=== PATIENT | male | born 1965 | race Caucasian/White ===

== ENCOUNTER 2023-07-17 14:08 | Emergency (ER) | payer MEDICARE, SELFPAY ==
[2023-07-17 14:14] VITALS: BP 168/90; PULSE 60; RESP 18; TEMP 36.7; O2SAT 97; BMI 45.9
--- NOTE | 2023-07-17 14:30 | CT_ITS ---
The [address] [address] Patient Name: TENA SHORT MRN: [id number] date: 1965 Sex: M Assigned Patient Location: ER Current Patient Location: ER Accession/Order Number: [id number] Exam Date: 07/17/2023 15:00 Report Date: 07/17/2023 15:30 At the request of: DANTE MONAHAN Procedure: CT abdomen pelvis w con EXAM: CT abdomen pelvis w con HISTORY: Umbilical hernia COMPARISON: None. TECHNIQUE: Axial CT imaging was performed through the abdomen and pelvis with intravenous contrast. Multiplanar reformats were performed. Dose reduction techniques were achieved by using automated exposure control and/or adjustment of mA and/or kV according to patient size and/or use of iterative reconstruction technique. FINDINGS: Lung bases: Lung bases are clear. No pleural effusion. GI upper: Unremarkable. Liver: Normal size and contour. Gallbladder: No significant abnormality. No cholelithiasis. Biliary system: No intra or extrahepatic biliary ductal dilatation. Spleen: Normal size. Pancreas: Unremarkable. Adrenal glands: Normal adrenal glands. Kidneys/ureters: Normal contours. No hydronephrosis. No nephrolithiasis or ureterolithiasis. Vessels: No aneurysm. Lymph Nodes: No lymphadenopathy. Small bowel: No wall thickening or dilatation. Colon: No wall thickening or dilatation. Appendix: Appendectomy. Peritoneal cavity: No free fluid or pneumoperitoneum. Lower : Unremarkable. Bones: No acute bony abnormality. Soft tissues: Small fat-containing hernia. Additional findings: None. CT/CT abdomen pelvis w con IMPRESSION: No acute abnormality. Small fat-containing umbilical hernia. Electronically authenticated by: NAS SCOTT Date: 07/17/2023 15:30
--- NOTE | 2023-07-17 14:31 | ED.ABDPAIN1 ---
HPI - Abdominal Pain General Chief Complaint: Abdominal Pain Stated Complaint: ABDOMINAL PAIN Time Seen by Provider: 07/17/23 14:09 Source: patient and family Mode of arrival: walk-in Limitations: no limitations History of Present Illness HPI narrative: Patient is a 57-year-old male who presents to the emergency department from his PCP office for suspected hernia to the umbilicus that has been present for 1 week. Patient was seen at the [facility] emergency department 2 days ago for unrelated diffuse swelling thought to be secondary to his nicardipine. While he was there, he complained of pain in the abdomen and distention. He had a CT of the abdomen and pelvis without contrast that was unremarkable and he was discharged home. On follow-up today with his PCP, he continued to complain of pain and swelling with a hard lump above the bellybutton. He has had no fevers, chills, vomiting. He states he chronically strains to have a bowel movement. He is passing small amounts of stool. He states when he strains to have a bowel movement, he shakes like I'm having a seizure . He has not been taking any medications for pain. No stool softeners. No urinary symptoms. He states he had laparoscopic surgery through the bellybutton years ago for an appendectomy. Related Data Previous Rx's Medication Instructions Recorded docusate sodium 100 mg capsule 100 mg PO BID PRN constipation #14 07/17/23 (Colace) caps ondansetron 4 mg disintegrating 4 mg PO Q6H PRN nausea and 07/17/23 tablet vomiting #12 tabs tramadol 50 mg tablet 50 mg PO Q4H PRN pain 3 days #15 07/17/23 tabs Allergies Allergy/AdvReac Type Severity Reaction Status Date / Time nifedipine AdvReac Severe edema Verified 07/17/23 14:22 Review of Systems ROS Constitutional Denies: fever or chills Ears, nose, mouth, and throat Denies: throat pain Cardiovascular Denies: chest pain Respiratory Denies: shortness of breath or cough Gastrointestinal Reports: abdominal pain and nausea; Denies: vomiting or diarrhea Genitourinary Denies: painful urination Musculoskeletal Denies: back pain Integumentary/Breast Denies: rash Neurological Denies: headache PFSH PFSH Social History Smoking status: Never smoker Exam Narrative Exam Narrative: Gen.: Awake, alert, in no distress Head: Normocephalic, atraumatic ENT: Moist mucous membranes Respiratory: No respiratory distress, lungs clear bilaterally Cardio: Regular rate and rhythm Gastrointestinal: Abdomen is soft, mildly distended, small umbilical hernia noted with no redness, induration or open wounds or drainage Extremities: Moves extremities equally Psych: Normal mood and affect Neuro: No focal neuro deficit Skin: Warm, dry, intact Constitutional Vital Signs, click to edit/add: Last Vital Signs Temp 98.0 F 07/17/23 14:14 Pulse 60 07/17/23 14:14 Resp 18 07/17/23 14:14 BP 168/90 H 07/17/23 14:14 Pulse Ox 97 07/17/23 14:14 O2 Del Method Room Air 07/17/23 14:14 Course Vital Signs Vital signs: Vital Signs Temperature 98.0 F 07/17/23 14:14 Pulse Rate 60 07/17/23 14:14 Respiratory Rate 18 07/17/23 14:14 Blood Pressure 168/90 H 07/17/23 14:14 Pulse Oximetry 97 07/17/23 14:14 Oxygen Delivery Method Room Air 07/17/23 14:14 Temperature 98.0 F 07/17/23 14:14 Pulse Rate 60 07/17/23 14:14 Respiratory Rate 18 07/17/23 14:14 Blood Pressure 168/90 H 07/17/23 14:14 Pulse Oximetry 97 07/17/23 14:14 Oxygen Delivery Method Room Air 07/17/23 14:14 MDM - Abdominal Pain MDM Narrative Medical decision making narrative: Lab studies are unremarkable, patient with stable, minimal renal insufficiency. No leukocytosis noted. CT of the abdomen and pelvis with IV contrast shows a small fat-containing umbilical hernia. No surrounding erythema or cellulitis of the abdominal wall. Abdomen is soft and benign, nonsurgical in the ER. No other acute abnormalities noted on CT. Patient is discharged home with a short course of analgesics and stool softeners with nausea medication. He is referred to general surgery. Return to the ER if symptoms change or worsen. Medical Records Attestation: I reviewed the patient's medical records. Lab Data Attestation: I reviewed the patient's lab results. Labs: Lab Results 07/17/23 Range/Units 14:30 WBC 8.7 (4.0-11.0) 10^3/uL RBC 4.05 L (4.70-6.10) 10^6/uL Hgb 11.7 L (14.0-18.0) g/dL Hct 36.1 L (42.0-54.0) % MCV 89.1 (80.0-94.0) fL MCH 28.9 (25.9-34.0) pg MCHC 32.4 (29.9-35.2) g/dL RDW 12.8 (11.0-15.0) % Plt Count 271 (150-450) 10^3/uL MPV 10.8 (9.5-13.5) fL Neut % (Auto) 64.2 (43.0-75.0) % Lymph % (Auto) 21.1 (20.5-60.0) % [place] % (Auto) 8.8 (1.7-12.0) % Eos % (Auto) 3.4 (0.9-7.0) % Baso % (Auto) 1.0 (0.2-2.0) % Neut # (Auto) 5.6 (1.4-6.5) 10^3/uL Lymph # (Auto) 1.8 (1.2-3.8) 10^3/uL [place] # (Auto) 0.8 (0.3-0.8) 10^3/uL Eos # (Auto) 0.3 (0.0-0.7) 10^3/uL Baso # (Auto) 0.1 (0.0-0.1) 10^3/uL Abs Immat Gran (auto) 0.13 H (0.00-0.03) 10^3/uL Imm/Tot Granulo (auto) 1.5 H (0.0-0.5) % Sodium 137 (136-145) mmol/L Potassium 3.9 (3.5-5.1) mmol/L Chloride 103 (98-107) mmol/L Carbon Dioxide 26.0 (21.0-32.0) mmol/L Anion Gap 11.9 BUN 22.0 H (7.0-18.0) mg/dL Creatinine 1.58 H (0.70-1.30) mg/dL Est GFR ( Amer) 55 L (>=60) Est GFR (Non-Af Amer) 45 L (>=60) BUN/Creatinine Ratio 13.9 Glucose 99 (74-106) mg/dL Calcium 9.1 (8.5-10.1) mg/dL Total Bilirubin 0.4 (0.2-1.0) mg/dL AST 22 (15-37) U/L ALT 48 (16-63) U/L Alkaline Phosphatase 108 (46-116) U/L Total Protein 7.6 (6.4-8.2) g/dL Albumin 3.6 (3.4-5.0) g/dL Globulin 4.0 g/dL Albumin/Globulin Ratio 0.[address] scan - abdomen: Attestation: I have reviewed the pertinent imaging results. Radiologist's impression: Procedure: CT abdomen pelvis w con EXAM: CT abdomen pelvis w con HISTORY: Umbilical hernia COMPARISON: None. TECHNIQUE: Axial CT imaging was performed through the abdomen and pelvis with intravenous contrast. Multiplanar reformats were performed. Dose reduction techniques were achieved by using automated exposure control and/or adjustment of mA and/or kV according to patient size and/or use of iterative reconstruction technique. FINDINGS: Lung bases: Lung bases are clear. No pleural effusion. GI upper: Unremarkable. Liver: Normal size and contour. Gallbladder: No significant abnormality. No cholelithiasis. Biliary system: No intra or extrahepatic biliary ductal dilatation. Spleen: Normal size. Pancreas: Unremarkable. Adrenal glands: Normal adrenal glands. Kidneys/ureters: Normal contours. No hydronephrosis. No nephrolithiasis or ureterolithiasis. Vessels: No aneurysm. Lymph Nodes: No lymphadenopathy. Small bowel: No wall thickening or dilatation. Colon: No wall thickening or dilatation. Appendix: Appendectomy. Peritoneal cavity: No free fluid or pneumoperitoneum. Lower : Unremarkable. Bones: No acute bony abnormality. Soft tissues: Small fat-containing hernia. Additional findings: None. IMPRESSION: No acute abnormality. Small fat-containing umbilical hernia. Electronically authenticated by: NAS SCOTT Date: 07/17/2023 15:30 Discharge Plan Discharge Chief Complaint: Abdominal Pain Clinical Impression: Umbilical hernia, Abdominal pain Patient Disposition: Home, Self-Care Time of Disposition Decision: 15:42 Condition: Good Prescriptions / Home Meds: New docusate sodium [Colace] 100 mg capsule 100 mg PO BID PRN (Reason: constipation) Qty: 14 0RF tramadol 50 mg tablet 50 mg PO Q4H PRN (Reason: pain) 3 Days Qty: 15 0RF Rx Instructions: DX: R10.9 ondansetron 4 mg tablet,disintegrating 4 mg PO Q6H PRN (Reason: nausea and vomiting) Qty: 12 0RF Instructions: Umbilical Hernia (ED), Acute Abdominal Pain (ED) Stand Alone Forms: Portal Instructions Referrals: ELIE HERRERA APRN [Primary Care Provider] - 1 week Yemi Mcmanus MD [Physician] - 1 week
[2023-07-17] MEDS: 0.9 % SODIUM CHLORIDE 1,000 ML 999 ML IV (14:36)
[2023-07-17] MEDS: MORPHINE SULFATE 4 MG/ML VIAL IV (14:50)
[2023-07-17] MEDS: KETOROLAC TROMETHAMINE 30 MG/ML VIAL 15 MG IVP (14:51)
[2023-07-17] MEDS: ONDANSETRON PF 4 MG/2 ML VIAL IV (14:52)
[2023-07-17 15:05] LABS: Basophils Absolute Auto 0.1 10^3/uL (0.0-0.1); Eosinophils Absolute Auto 0.3 10^3/uL (0.0-0.7); Eosinophils Percent Auto 3.4 % (0.9-7.0); Hematocrit 36.1 % (42.0-54.0); Hemoglobin 11.7 g/dL (14.0-18.0); Immature Granulocytes Abs Auto 0.13 10^3/uL (0.00-0.03); Immature Granulocytes Pct Auto 1.5 % (0.0-0.5); Lymphocytes Absolute Auto 1.8 10^3/uL (1.2-3.8); Lymphocytes Percent Auto 21.1 % (20.5-60.0); Mean Corpuscular HGB Conc 32.4 g/dL (29.9-35.2); Mean Corpuscular Hemoglobin 28.9 pg (25.9-34.0); Mean Corpuscular Volume 89.1 fL (80.0-94.0); Mean Platelet Volume 10.8 fL (9.5-13.5); Monocytes Absolute Auto 0.8 10^3/uL (0.3-0.8); Monocytes Percent Auto 8.8 % (1.7-12.0); Neutrophils Absolute Auto 5.6 10^3/uL (1.4-6.5); Neutrophils Percent Auto 64.2 % (43.0-75.0); Platelet Count 271 10^3/uL (150-450); Red Blood Count 4.05 10^6/uL (4.70-6.10); Red Cell Distribution Width 12.8 % (11.0-15.0); White Blood Count 8.7 10^3/uL (4.0-11.0)
[2023-07-17 15:20] LABS: Alanine Aminotransferase 48 U/L (16-63); Albumin Globulin Ratio 0.9; Albumin Level 3.6 g/dL (3.4-5.0); Alkaline Phosphatase 108 U/L (46-116); Anion Gap 11.9; Aspartate Amino Transferase 22 U/L (15-37); BUN Creatinine Ratio 13.9; Bilirubin Total 0.4 mg/dL (0.2-1.0); Calcium 9.1 mg/dL (8.5-10.1); Chloride 103 mmol/L (98-107); Estimated GFR (African America 55 (>=60); Estimated GFR (Non-African Ame 45 (>=60); Glucose 99 mg/dL (74-106); Potassium 3.9 mmol/L (3.5-5.1); Sodium 137 mmol/L (136-145); Total Protein 7.6 g/dL (6.4-8.2)
== END 2023-07-17 16:00 | disposition home or self-care (01) ==
PROVIDERS: Physician Assistant; Emergency Provider Emergency Medicine; PCP Nurse Practitioner Primary Care
DX: K42.9 Umbilical hernia without obstruction or gangrene (principal); R10.9 Unspecified abdominal pain
CPT/HCPCS: 36415; 74177; 80053; 85025; 96374; 96375; 99285; Q9967